=== PATIENT | male | born 1960 ===

== ENCOUNTER → 2024-03-02 10:20 | Outpatient (REF) | payer BC, SELFPAY | LOC: RAD 10:20 | PROVIDERS: ATTENDING PHYSICIAN Internal Medicine Cardiovascular Disease | DX: R93.1 Abnormal findings on diagnostic imaging of heart and coronary circulation (principal); I25.84 Coronary atherosclerosis due to calcified coronary lesion | CPT/HCPCS: 75574; Q9967 ==